=== PATIENT | male | born 1980 | race African-American/Black ===

== ENCOUNTER → 2025-04-07 | Emergency (ER) | payer OTHER ==
[~2025-04-07] MED LIST: cefTRIAXone (ROCEPHIN) 2 GM VIAL ONE
[2025-04-07 12:40] LABS: #Basophils 0.03 10x3/uL (0.0-0.2); #Eosinophils 0.24 10x3/uL (0.0-0.5); #Monocytes 0.91 10x3/uL (0.0-1.1); #Neutrophils 4.16 10x3/uL (1.5-8.4); %Basophils 0.5 % (0.0-2.0); %Eosinophils 3.7 % (0.0-6.0); %Lymphocytes 16.2 % (18.0-47.0); %Monocytes 14.2 % (0.0-10.0); %Neutrophils 64.9 % (40.0-75.0); Hematocrit 35.1 % (38.8-50.0); Hemoglobin 11.5 g/dL (13.5-17.5); Mean Corpuscular Hemoglobin 27.3 pg (27.0-33.0); Mean Corpuscular Volume 83.2 fL (81.2-95.1); Platelet Count 263 10x3/uL (150-450); Red Blood Cell (RBC) Count 4.22 10x6/uL (4.32-5.72); White Blood Cell (WBC) Count 6.41 10x3/uL (3.5-10.5)
[2025-04-07 13:03] LABS: ALT (SGPT) Less than 7 U/L (Less than 45); AST (SGOT) 15 U/L (11-34); Albumin 3.7 g/dL (3.1-4.5); Alkaline Phosphatase 90 U/L (40-110); Anion Gap 13 mmol/L (10-20); BUN (Urea Nitrogen) 48 mg/dL (8.9-20.6); Bilirubin, Total 0.4 mg/dL (0.3-1.2); Calc. Creatinine Clearance 0 mL/min (70-130); Calcium 9.4 mg/dL (7.8-10.44); Carbon Dioxide 21 mmol/L (22-29); Chloride 106 mmol/L (98-107); Globulin 5.0 g/dL (2.4-3.5); Glucose 89 mg/dL (70-105); Lipase 35 U/L (8-78); Potassium 4.3 mmol/L (3.5-5.1); Sodium 136 mmol/L (136-145)
[2025-04-07 13:43] LABS: Glucose, Urine (Dipstick) Normal (Negative); Leukocyte 500 (Negative); Protein, Urine (Dipstick) 500 mg/dl (Neg-Trace); Specific Gravity, Urine 1.010 (1.005-1.030)
[2025-04-07 14:27] LABS: Bacteria/HPF 3+ HPF (None Seen); CAUTI Indications for Culture Pelvic or flank pain; Urine Culture Reflex Yes Yes; WBC/HPF 21-50 HPF (0-3)
== END ==
LOC: EEVIPCON 10:25 → CSHERS 10:25
DX: N17.9 Acute kidney failure, unspecified (principal); I10 Essential (primary) hypertension
CPT/HCPCS: 36415; 74176; 80053; 81001; 83690; 85025; 87077; 87086; 96365; J0696